=== PATIENT | female | born 1985 | race Caucasian/White ===

== ENCOUNTER 2016-08-14 15:54 | Emergency (ER) | payer SELFPAY ==
[~2016-08-14] VITALS: Ht 144.8 cm; Wt 74.4 kg
[2016-08-14 16:10] VITALS: BP 122/68
[2016-08-14] MEDS ORDERED: NACL 0.9% 1,000 ML IV SCH (20:30)
[2016-08-14] MEDS ORDERED: ONDANSETRON 4 MG/2 ML VIAL IVP ONE (20:30)
[2016-08-14] MEDS ORDERED: FAMOTIDINE 20 MG/2 ML VIAL IVP ONE (20:30)
--- NOTE | 2016-08-14 20:30 | NUR ---
PT TAKEN TO BED 7
--- NOTE | 2016-08-14 20:31 | NUR ---
Dr. Navarrete evaluating patient at bedside.
--- NOTE | 2016-08-14 20:31 | NUR ---
PATIENT PRESENTS TO ED WITH N/V X 15 DAYS, WITH VAGINAL BLEEDING . PT STATES SHE HAS NOT HAD A PERIOD IN 3 MONTHS . SKIN IS PINK/WARM/DRY; AAOX4 WITH EVEN AND STEADY GAIT; LUNGS CLEAR BL; HR EVEN AND REGULAR; PT DENIES ANY FEVER, CP, SOB, OR COUGH AT THIS TIME; PATIENT STATES PAIN OF 7/10 AT THIS TIME; VSS; PATIENT POSITIONED FOR COMFORT; HOB ELEVATED; BEDRAILS UP X2; BED DOWN. ER MD MADE AWARE OF PT STATUS.
--- NOTE | 2016-08-14 21:20 | NUR ---
Female [employer] ([place] [employer]) accompanied ER MD FOR female patient Pelvic Exam.
[2016-08-14 21:49] VITALS: BP 119/71
--- NOTE | 2016-08-14 21:49 | NUR ---
Patient discharged with v/s stable. Written and verbal after care instructions given and explained. Patient alert, oriented and verbalized understanding of instructions. Ambulatory with steady gait. All questions addressed prior to discharge. ID band removed. Patient advised to follow up with PMD. Rx of PROVERA 10MG, TYLENOL #3 TAB, BACTRIM DS given. Patient educated on indication of medication including possible reaction and side effects. Opportunity to ask questions provided and answered.
--- NOTE | 2016-08-14 21:49 | NUR ---
IV removed, catheter intact and site benign. Applied folded 4x4 gauze and tape to stop bleeding.
== END 2016-08-14 21:49 | disposition home or self-care (01) ==
LOC: MED 15:54
DX: N93.8 Other specified abnormal uterine and vaginal bleeding (principal); N39.0 Urinary tract infection, site not specified; D64.9 Anemia, unspecified
CPT/HCPCS: 36415; 80053; 81001; 81025; 82150; 83690; 85025; 85610; 85730; 87086; 96361; 96374; 96375; 99284; J2405; J3490; J7030